=== PATIENT | male | born 1980 | race Caucasian/White ===

== ENCOUNTER 2021-08-06 04:39 | Emergency (ER) | payer MEDICAID, OTHER ==
[~2021-08-06] VITALS: Ht 170.2 cm; Wt 94.8 kg
[2021-08-06 04:57] VITALS: BP 133/77
--- NOTE | 2021-08-06 05:05 | NUR ---
PT TAKEN TO BED 09.
--- NOTE | 2021-08-06 05:25 | NUR ---
PT PLACED ON HEART MONITOR AND CONSTANT 02 MONITORING. EVALUATING PT AT BEDSIDE.
--- NOTE | 2021-08-06 05:30 | NUR ---
PT SAID HE WAS HOMELESS AND HAS HX OF APNEA. HE IS OFF AND ON SLEEPING DURING EVALUATION OF PT BY STAFF.
--- NOTE | 2021-08-06 05:48 | NUR ---
PT IS DISCHARGED AND LEFT WITH EDUCATION PAPERWORK IN HAND. PT VERBELIZED UNDERSTANDING OF FOLLOW UP INSTRUCTIONS.
== END 2021-08-06 05:48 | disposition home or self-care (01) ==
LOC: MED 04:39
DX: G47.30 Sleep apnea, unspecified (principal); J44.9 Chronic obstructive pulmonary disease, unspecified; F17.200 Nicotine dependence, unspecified, uncomplicated
CPT/HCPCS: 99281